=== PATIENT | female | born 1995 | race Caucasian/White ===

== ENCOUNTER 2020-01-28 12:54 | Observation (INO) | payer OTHER ==
[~2020-01-28] VITALS: Ht 162.6 cm; Wt 79.5 kg
[2020-01-28 13:13] VITALS: BP 101/67
[2020-01-28 13:16] VITALS: BP 101/67
[2020-01-28 14:04] VITALS: BP 101/67
[2020-01-28 17:23] VITALS: BP 101/39
[2020-01-28 17:46] VITALS: BP 109/56
[2020-01-28 21:39] VITALS: BP 105/67
[2020-01-29 02:01] VITALS: BP 112/74
[2020-01-29 05:48] VITALS: BP 116/78
[2020-01-29 07:58] LABS: HEMATOCRIT 32.7 % (37.0-47.0); HEMOGLOBIN 10.6 g/dL (12.5-16.0); MEAN CELL VOLUME 92 fl (78-100); MEAN CORPUSCULAR HEMOGLOBIN 30 pg (27-31); MEAN CORPUSCULAR HGB CONC 32 g/dL (33-37); PLATELET COUNT 160 K/mm3 (130-400); RED BLOOD COUNT 3.54 M/mm3 (4.10-5.30); WHITE BLOOD COUNT 13.1 K/mm3 (4.8-10.8)
[2020-01-29 08:08] LABS: MEAN PLATELET VOLUME 12.2 fl (7.4-10.4)
[2020-01-29 08:22] LABS: POTASSIUM 3.8 mmol/L (3.5-5.1)
[2020-01-29 08:23] LABS: BAND 3 % (0-10); CALCIUM 8.1 mg/dL (8.3-10.5); LYMPHOCYTE 4 % (20-51); NEUTROPHILS 85 % (42-75)
[2020-01-29 08:24] LABS: MONOCYTE 8 % (3-10)
[2020-01-29 09:56] VITALS: BP 113/72
[2020-01-29] MEDS ORDERED: ZOFRAN ODT4 MG PO (11:01)
[2020-01-29] MEDS ORDERED: CIPRO500 M1 PO (11:02)
[2020-01-29 11:13] VITALS: BP 87/56
== END 2020-01-29 12:02 | disposition home or self-care (01) ==
LOC: MED/SURG 12:54
PROVIDERS: ADMIT Nurse Practitioner
DX: N10 Acute pyelonephritis (principal); Z80.9 Family history of malignant neoplasm, unspecified
CPT/HCPCS: G0378; G0379; J0696; J1885; J7030; Q9967

== ENCOUNTER → 2020-01-28 | Outpatient (CLI) | payer OTHER ==
[~2020-01-28] VITALS: Ht 162.6 cm; Wt 77.3 kg
[~2020-01-28] MED LIST: CIPRO500 M1 PO; ZOFRAN ODT4 MG PO
[2020-01-28 09:20] VITALS: BP 107/60
[2020-01-28 10:02] LABS: HEMATOCRIT 41.9 % (37.0-47.0); HEMOGLOBIN 13.5 g/dL (12.5-16.0); RED BLOOD COUNT 4.61 M/mm3 (4.10-5.30); RED CELL DISTRIBUTION WIDTH 12.1 % (11.5-14.5); WHITE BLOOD COUNT 19.9 K/mm3 (4.8-10.8)
[2020-01-28 10:08] LABS: ALBUMIN 4.7 g/dL (3.5-5.0)
[2020-01-28 10:09] LABS: POTASSIUM 3.4 mmol/L (3.5-5.1)
[2020-01-28 10:10] LABS: CALCIUM 9.8 mg/dL (8.3-10.5)
[2020-01-28 10:11] LABS: TOTAL PROTEIN 8.6 g/dL (6.4-8.3)
[2020-01-28 10:13] LABS: TOTAL BILIRUBIN 0.6 mg/dL (0.2-1.2)
[2020-01-28 10:22] LABS: MEAN PLATELET VOLUME 12.2 fl (7.4-10.4)
== END ==
LOC: AMSURD 09:20
PROVIDERS: Nurse Practitioner
DX: N12 Tubulo-interstitial nephritis, not specified as acute or chronic (principal)
CPT/HCPCS: J0696; J7030

== ENCOUNTER 2020-01-31 11:38 | Emergency (ER) | payer OTHER ==
[~2020-01-31] VITALS: Ht 162.6 cm; Wt 79.5 kg
[2020-01-31 13:23] LABS: HEMATOCRIT 35.7 % (37.0-47.0); HEMOGLOBIN 11.4 g/dL (12.5-16.0); MEAN CELL VOLUME 91 fl (78-100); MEAN CORPUSCULAR HEMOGLOBIN 29 pg (27-31); MEAN CORPUSCULAR HGB CONC 32 g/dL (33-37); MEAN PLATELET VOLUME 11.8 fl (7.4-10.4); PLATELET COUNT 240 K/mm3 (130-400); RED BLOOD COUNT 3.93 M/mm3 (4.10-5.30); RED CELL DISTRIBUTION WIDTH 11.8 % (11.5-14.5); WHITE BLOOD COUNT 5.8 K/mm3 (4.8-10.8)
[2020-01-31 13:30] LABS: URINE APPEARANCE CLEAR; URINE BILIRUBIN NEGATIVE (NEGATIVE); URINE BLOOD NEGATIVE (NEGATIVE); URINE COLOR YELLOW; URINE GLUCOSE NEGATIVE (NEGATIVE); URINE KETONE NEGATIVE (NEGATIVE); URINE LEUKOCYTE ESTERASE NEGATIVE (NEGATIVE); URINE MUCUS PRESENT (NOT PRESENT); URINE NITRATE NEGATIVE (NEGATIVE); URINE PROTEIN(semi-quant) NEGATIVE (NEGATIVE); URINE UROBILINOGEN NORMAL (NORMAL)
[2020-01-31 13:38] LABS: LYMPHOCYTE 24 % (20-51); MONOCYTE 10 % (3-10); NEUTROPHILS 63 % (42-75)
[2020-01-31 14:03] VITALS: BP 106/66
== END 2020-01-31 14:07 | disposition home or self-care (01) ==
LOC: ED 11:38
PROVIDERS: Family Medicine
DX: N12 Tubulo-interstitial nephritis, not specified as acute or chronic (principal); Z79.2 Long term (current) use of antibiotics